=== PATIENT | female | born 1955 | race Caucasian/White ===

== ENCOUNTER 2017-01-17 12:21 | Outpatient (CLI) | payer OTHER ==
--- NOTE | 2017-01-17 16:06 | XRAY Report ---
THREE VIEW RIGHT ANKLE: 01/17/2017 CLINICAL INDICATION: Pain, swelling. FINDINGS: AP, lateral, and oblique views of the right ankle demonstrate lateral soft tissue swelling . There is no evidence of acute fracture or dislocation. The joint spaces are preserved. IMPRESSION: SOFT TISSUE SWELLING, BUT NO EVIDENCE OF ACUTE FRACTURE. JOB #: [id number] EXT JOB #:[id number]
--- NOTE | 2017-01-17 16:07 | XRAY Report ---
THREE VIEW RIGHT FOOT: 01/17/2017 CLINICAL INDICATION: Pain, swelling. FINDINGS: AP, lateral, and oblique views of the right foot demonstrate lateral soft tissue swelling. Mild osteoarthritis of the 1st metatarsophalangeal joint is noted. There is no evidence of acute fra cture or dislocation. No radiopaque foreign body is seen in the soft tissues. IMPRESSION: MILD OSTEOARTHRITIS. SOFT TISSUE SWELLING, BUT NO EVIDENCE OF ACUTE FRACTURE. JOB #: [id number] EXT JOB #:[id number]
== END 2017-01-17 12:22 | disposition home or self-care (01) ==
LOC: DI 12:21
PROVIDERS: ATTEND Nurse Practitioner Family
DX: M19.071 Primary osteoarthritis, right ankle and foot (principal); M25.471 Effusion, right ankle